=== PATIENT | female | born 1945 | race Caucasian/White ===

== ENCOUNTER 2017-01-18 09:09 | Emergency (ER) | payer OTHER ==
[~2017-01-18] VITALS: Ht 160 cm; Wt 69.0 kg
[~2017-01-18 09:09] MED LIST: ALPR.25 PO; AMLO2.5T PO; BENT20TA PO; FISHCAP4 PO; LACTCAP7 PO; METO25TA6 PO; VITA20003 PO; ZOCO40TA PO
[2017-01-18 09:18] VITALS: BP 175/79; PULSE 86; RESP 16; TEMP 98; O2SAT 100
[2017-01-18] MEDS ORDERED: ALPR.25 PO (09:30)
[2017-01-18] MEDS ORDERED: METO25TA3 PO (09:30)
[2017-01-18] MEDS ORDERED: VENTAER INH (09:38)
--- NOTE | 2017-01-18 09:42 | PD ---
HPI Chief Complaint: Cold / Flu Symptoms Time Seen by Provider: 09:32 Travel History International Travel<30 days: No Contact w/Intl Traveler<30days: No Traveled to known affect area: No History of Present Illness HPI The patient was seen and examined in the presence of the nurse. This patient complains of cough. Duration 2 weeks. She also has runny nose and congestion and sore throat. Denies fever. Cough is dry. She saw her physician for this and had a chest x-ray and lab studies and completed a Z-Brian. She doesn't feel any better. PFSH Past Medical History Anxiety: Yes Heart Rhythm Problems: No Cardiac Catheterization: No Cardiovascular Problems: Yes High Cholesterol: Yes Congestive Heart Failure: No Diabetes: No Diminished Hearing: No Gastrointestinal Disorders: Yes (CROHN'S DISEASE) GERD: Yes Hypertension: Yes Immunizations Current: Yes ?: Not Menopausal: Yes Ovarian Cysts: Yes Past Surgical History Abdominal Surgery: Yes (CROHN'S SURGERY) Appendectomy: Yes Cholecystectomy: Yes Coronary Artery Bypass Graft: No Gynecologic Surgery: Yes Other Surgery: Yes (ENDOSCOPY) Social History Alcohol Use: No Tobacco Use: No Substance Use: No Allergies-Medications (Allergen,Severity, Reaction): Coded Allergies: Penicillin (Verified Allergy, Severe, mouth swells, 01/18/17) Reported Meds & Prescriptions Reported Meds & Active Scripts Active Ventolin Hfa 18 GM Inh (Albuterol Sulfate) 90 Mcg/Act Aer 2 Puff INH Q4H PRN Reported Metoprolol Tartrate 25 Mg Tab 25 Mg PO BID Xanax (Alprazolam) 0.25 Mg Tab 0.25 Mg PO BID PRN Review of Systems HENT: No: Headaches Cardiovascular: No: Chest Pain or Discomfort Respiratory: Positive: Cough Physical Exam Narrative RESPIRATORY: Respiratory effort unlabored, no retractions or use of accessory muscles. Breath sounds are clear and symmetric. CARDIOVASCULAR: Regular rate and rhythm without murmur. Extremities showed no edema or varicosities. GASTROINTESTINAL: Abdomen soft, non-tender, nondistended. Positive bowel sounds. No hepato-splenomegaly, or palpable masses. No guarding. Throat clear Data Data Last Documented VS Vital Signs Date Time Temp Pulse Resp B/P Pulse Ox O2 Delivery O2 Flow Rate FiO2 01/18/17 09:18 98.0 86 16 175/79 100 MDM Medical Decision Making Medical Screen Exam Complete: Yes Emergency Medical Condition: Yes Medical Record Reviewed: Yes Differential Diagnosis Bronchitis, laryngitis, pneumonia Narrative Course I have reviewed the patient's electronic medical record. Patient has clear lungs with 100% oxygen saturations but persistent hacking cough despite Z-Brian She's had extensive workup She likely has viral bronchitis I prescribed albuterol inhaler to use as needed The patient was advised to follow up with their physician and return if they worsen. Diagnosis Primary Impression: Acute viral bronchitis Additional Instructions: The patient was advised to follow up with their physician and return if they worsen. Med/Other Pt SpecificInfo: Prescription(s) given Scripts Albuterol 18 GM Inh (Ventolin Hfa 18 GM Inh)90 Mcg/Act Aer2 Puff INH Q4H PRN ( SHORTNESS OF BREATH) #1 INHALER Ref 0 Prov:Lalo Bell MD 01/18/17 Disposition: 01 DISCHARGE HOME Condition: Stable Lalo Bell MD Jan 18, 2017 09:42
== END 2017-01-18 09:55 | disposition home or self-care (01) ==
LOC: PHEFT 09:09
DX: J20.8 Acute bronchitis due to other specified organisms (principal); B97.89 Other viral agents as the cause of diseases classified elsewhere; R09.81 Nasal congestion; R07.0 Pain in throat; I10 Essential (primary) hypertension; E78.00 Pure hypercholesterolemia, unspecified; Z86.59 Personal history of other mental and behavioral disorders; Z86.79 Personal history of other diseases of the circulatory system; Z87.19 Personal history of other diseases of the digestive system
CPT/HCPCS: 99283

== ENCOUNTER 2017-02-01 22:13 | Emergency (ER) | payer OTHER ==
[~2017-02-01 22:13] MED LIST changes: -AMLO2.5T PO; -BENT20TA PO; -FISHCAP4 PO; -LACTCAP7 PO; +METO25TA3 PO; -METO25TA6 PO; +VENTAER INH; -VITA20003 PO; -ZOCO40TA PO
[2017-02-01 22:17] VITALS: BP 105/79; PULSE 104; RESP 20; TEMP 97.8; O2SAT 100
[2017-02-01] MEDS ORDERED: METO50TA11 PO (22:25)
[2017-02-01 22:35] VITALS: PULSE 88; RESP 18; O2SAT 100
--- NOTE | 2017-02-01 22:40 | PD ---
HPI Chief Complaint: Respiratory Symptoms Time Seen by Provider: 22:29 Travel History International Travel<30 days: No Contact w/Intl Traveler<30days: No Traveled to known affect area: No History of Present Illness HPI 71-year-old female here for evaluation of cough. For the last month the patient has had a dry/hacking cough. She was seen in the emergency department on 01/18/17 after having had the cough for a couple of weeks and being treated as an outpatient by her primary care physician with a Z-Brian without any improvement. It was felt that she had viral bronchitis at that time. Patient tells me that last week her primary care physician ordered lab work as well as a chest x-ray on her, and she tells me that everything was normal. She denies chest pain. She states that she was doing well today, until this evening at around 8:00 PM when her cough returned. She is having some pain in her throat, and she believes that there is a wound in her throat. No dyspnea. No history of DVT or PE. No fevers. The patient also tells me that she feels anxious and has an old prescription for Xanax and was felt 2 years ago, but believes that these medications are no longer effective. She is requesting a refill of Xanax until she can make an appointment with her primary care physician early this week. 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.) Gastrointestinal Disorders: Yes (CROHN'S DISEASE) GERD: Yes Hypertension: Yes Immunizations Current: Yes Tetanus Vaccination: Unknown Influenza Vaccination: Yes Menopausal: Yes : 7 Para: 2 Miscarriage: 5 Ovarian Cysts: Yes Past Surgical History Abdominal Surgery: Yes (CROHN'S SURGERY) Appendectomy: Yes Cholecystectomy: Yes Coronary Artery Bypass Graft: No Gynecologic Surgery: Yes Other Surgery: Yes (ENDOSCOPY) Social History Alcohol Use: No Tobacco Use: No Substance Use: No Allergies-Medications (Allergen,Severity, Reaction): Coded Allergies: penicillin G (Unverified Allergy, Severe, mouth swells, 02/01/17) Reported Meds & Prescriptions Reported Meds & Active Scripts Active Ventolin Hfa 18 GM Inh (Albuterol Sulfate) 90 Mcg/Act Aer 2 Puff INH Q4H PRN Reported Metoprolol Succinate ER 24 HR (Metoprolol Succinate) 50 Mg Tab 50 Mg PO DAILY Xanax (Alprazolam) 0.25 Mg Tab 0.25 Mg PO BID PRN Review of Systems Except as stated in HPI: all other systems reviewed are Neg Physical Exam Narrative GENERAL: Well-developed, well-nourished, persistent dry/hacking cough SKIN: Focused skin assessment warm/dry. HEAD: Atraumatic. Normocephalic. EYES: Pupils equal and round. No scleral icterus. No injection or drainage. ENT: Mucous membranes pink and moist. Normal pharynx. NECK: Trachea midline. No JVD. No masses. CARDIOVASCULAR: Regular rate and rhythm. RESPIRATORY: No accessory muscle use. Clear to auscultation. Breath sounds equal bilaterally. Persistent dry/hacking cough. No respiratory distress. Speaking rapidly. MUSCULOSKELETAL: No obvious deformities. No clubbing. No cyanosis. No edema. NEUROLOGICAL: Awake and alert. No obvious cranial nerve deficits. Motor grossly within normal limits. Normal speech. PSYCHIATRIC: Appropriate mood and affect; insight and judgment normal. Data Data Last Documented VS Vital Signs Date Time Temp Pulse Resp B/P (MAP) Pulse Ox O2 Delivery O2 Flow Rate FiO2 02/01/17 22:35 88 18 100 Room Air 02/01/17 22:17 97.8 105/79 (88) Orders Orders Albuterol-Ipratropium Neb (Duoneb Neb) (02/01/17 22:45) Guaifen-Cod 200-20 Mg/10ml Liq (Robituss (02/01/17 22:45) Prednisone (Deltasone) (02/01/17 22:45) Alprazolam (Xanax) (02/01/17 22:45) Al-Mag Hy-Si 40-40-4 Mg/Ml Liq (Mag-Al P (02/01/17 23:30) Lidocaine 2% Viscous (Xylocaine 2% Visco (02/01/17 23:30) MDM Medical Decision Making Medical Screen Exam Complete: Yes Emergency Medical Condition: Yes Medical Record Reviewed: Yes Differential Diagnosis Bronchitis, reactive airway disease, pneumonia less likely Narrative Course Vital signs show heart rate 80, blood pressure 105/79, pulse ox 100% on room air , oral temp of 97.8F. Patient's lungs are clear and equal bilaterally. She tells me she had a chest x -ray last week and reports that it was normal. She also reports that she had lab work performed by her primary care physician last week that was also normal. Her cough is dry/hacking. It has been going on for a month. She is in no respiratory distress and is speaking very rapidly. She was given 3 DuoNeb treatments and oral prednisone as well as a dose of guaifenesin with codeine and a dose of viscous lidocaine. Patient feels improved, however she still complains of a dry cough. She is stable for discharge home with outpatient follow-up with her primary care physician whom she states she will call tomorrow. She is requesting a short course of Xanax in case she is unable to see him tomorrow. She was informed on when to return to the emergency department. She verbalizes understanding and agreement with plan. Diagnosis Primary Impression: Cough Referrals: Primary Care Physician 3 days Additional Instructions: Follow-up with your primary care physician tomorrow. Return to the emergency department for worsening symptoms or any other concerns. Scripts Alprazolam (Xanax) 0.5 Mg Tab 0.5 MG PO Q8H Y for ANXIETY, #3 TAB 0 Refills Prov: Jamie Perez MD 02/01/17 Guaifenesin-Codeine Liq (Guaifenesin AC Liq) 100-10 Mg/5 Ml Syrp 10 ML PO Q6H Y for COUGH, #1 BOTTLE 0 Refills Prov: Jamie Perez MD 02/01/17 Prednisone (Prednisone) 50 Mg Tab 50 MG PO DAILY for 5 Days, TAB 0 Refills Prov: Jamie Perez MD 02/01/17 Disposition: 01 DISCHARGE HOME Condition: Stable Jamie Perez MD Feb 01, 2017 22:39
[2017-02-01] MEDS ORDERED: guaiFENesin/CODEINE SYRUP 200 MG/20 MG/10 ML CUP PO ONE (22:45)
[2017-02-01] MEDS ORDERED: predniSONE 50 MG TAB PO ONE (22:45)
[2017-02-01] MEDS ORDERED: ALPRAZolam 0.5 MG TAB PO ONE (22:45)
[2017-02-01] MEDS: RESP: ALBUTEROL 2.5 MG/IPRATROPIUM 0.5 MG NEB (SCH) INH ×3 (22:48→23:07)
[2017-02-01] MEDS ORDERED: LIDOCAINE VISCOUS 2% SOLN 15 ML UDC PO ONE (23:30)
[2017-02-01] MEDS ORDERED: ALUMINUM/MAGNESIUM/SIMETH 30 ML CUP PO ONE (23:30)
[2017-02-01] MEDS ORDERED: PRED50 PO (23:42)
[2017-02-01] MEDS ORDERED: ALPR.5 PO (23:42)
[2017-02-01] MEDS ORDERED: GUAISYP4 PO (23:42)
[2017-02-01 23:50] VITALS: BP 123/73; PULSE 90; RESP 16; O2SAT 96
== END 2017-02-02 00:09 | disposition home or self-care (01) ==
LOC: PHED 22:13
DX: R05 Cough (principal); K50.90 Crohn's disease, unspecified, without complications; I10 Essential (primary) hypertension; K21.9 Gastro-esophageal reflux disease without esophagitis
CPT/HCPCS: 94640; 94664; 99284; J7512

== ENCOUNTER → 2017-02-05 | Outpatient (CLI) | payer OTHER ==
[~2017-02-05] MED LIST changes: +ALPR.5 PO; +GUAISYP4 PO; -METO25TA3 PO; +METO50TA11 PO; +PRED50 PO
--- NOTE | 2017-02-10 08:54 | RSPPFT ---
DATE OF PROCEDURE: 02/05/17 COMMENTS: Spirometry with FVC of 2.8 predicted 2.7, FEV1 of 2.1 predicted 2.1, FEV1/FVC ratio 77% predicted 82%. Lung volumes are basically within the predicted range. Airways resistance is increased. DLCO is within the predicted range. IMPRESSION: On the basis of the above, patient has flow values and lung volumes within the predicted range. There is some increase in airways resistance.
== END ==
LOC: HRSP 07:49
PROVIDERS: ATTEND Internal Medicine
DX: R06.02 Shortness of breath (principal); R05 Cough
CPT/HCPCS: 94060; 94726; 94729

== ENCOUNTER → 2017-04-02 | Outpatient (CLI) | payer OTHER ==
[~2017-04-02] MED LIST changes: +METO1TAB9 PO; -METO50TA11 PO
--- NOTE | 2017-04-03 09:00 | RSPPFT ---
DATE OF PROCEDURE: 04/02/17 COMMENTS: Spirometry shows FVC of 2.9 at 108% of predicted, FEV1 of 103%,, FEV1/FVC ratio is normal. Flow is normal at FEF 25, FEF 50, FEF 75 and FEF 25-75. There is no response after bronchodilator treatment. Lung volumes show residual volume is decreased. TLC is normal. Diffusion capacity is normal. Flow volume loop indicates a normal pattern. IMPRESSION: 1. Normal spirometry. 2. No response after bronchodilator treatment. 3. Normal lung volumes. 4. Normal diffusion. 5. No significant changes compared to previous study of 02/05/17.
== END ==
LOC: PHRSP 07:26
PROVIDERS: ATTEND Specialist
DX: R05 Cough (principal)
CPT/HCPCS: 94060; 94726; 94729

== ENCOUNTER 2017-08-11 12:20 | Observation (INO) | payer OTHER ==
[2017-08-11] MEDS ORDERED: IOHEXOL 350 MG/ML 10 ML VIAL (for RAD DIAG) IVCONTRAST ONE (12:21)
[2017-08-11 12:25] VITALS: BP 157/73; PULSE 78; RESP 18; TEMP 99.4; O2SAT 99
[2017-08-11 13:37] LABS: AUTOMATED NEUTROPHIL # 3.5 TH/MM3 (1.8-7.7); BASOPHIL % 0.2 % (0.0-2.0); EOSINOPHIL # 0.2 TH/MM3 (0-0.4); EOSINOPHIL % 2.6 % (0.0-4.0); HEMATOCRIT 40.1 % (35.0-46.0); HEMOGLOBIN 13.6 GM/DL (11.6-15.3); LYMPH % 31.3 % (9.0-44.0); LYMPHOCYTE # 1.8 TH/MM3 (1.0-4.8); MEAN CELL VOLUME 86.2 FL (80.0-100.0); MEAN CORPUSCULAR HEMOGLOBIN 29.2 PG (27.0-34.0); MEAN CORPUSCULAR HGB CONC 33.8 % (32.0-36.0); MEAN PLATELET VOLUME 9.2 FL (7.0-11.0); MONOCYTE # 0.3 TH/MM3 (0-0.9); NEUT % 59.9 % (16.0-70.0); PLATELET COUNT 229 TH/MM3 (150-450); RED BLOOD COUNT 4.66 MIL/MM3 (4.00-5.30); RED CELL DISTRIBUTION WIDTH 13.5 % (11.6-17.2); WHITE BLOOD COUNT 5.8 TH/MM3 (4.0-11.0)
--- NOTE | 2017-08-11 13:39 | RADRPT ---
EXAM DATE/TIME: 08/11/2017 13:26 [facility] COMPARISON: CHEST SINGLE AP, March 10, 2016, 1:42. INDICATIONS : Chest pain. Patient complains of burning and tightness in chest that radiates to back.. Patient also has a cough and shortness of breath. patiebt also states she has high blood pressure today. MEDICAL HISTORY : H/O Tuberculosis. SURGICAL HISTORY : None. ENCOUNTER: Initial ACUITY: 1 day PAIN SCORE: 4/10 LOCATION: Bilateral chest FINDINGS: PA and lateral views of the chest demonstrate the lungs to be symmetrically aerated without evidence of mass, infiltrate or effusion. The cardiomediastinal contours are unremarkable. Osseous structure s are intact. CONCLUSION: No acute intrathoracic disease. No change compared to the prior study. Ubaldo Salinas MD on August 11, 2017 at 13:37 Board Certified Radiologist. This report was verified electronically.
[2017-08-11 13:46] LABS: INTERNATIONAL NORMALIZED RATIO 0.9 RATIO; PROTHROMBIN TIME - PATIENT 9.6 SEC (9.8-11.6)
[2017-08-11 14:00] LABS: BLOOD UREA NITROGEN 10 MG/DL (7-18); CALCIUM 9.5 MG/DL (8.5-10.1); CHLORIDE 102 MEQ/L (98-107); CREATININE 0.77 MG/DL (0.50-1.00); GLOMERULAR FILTRATION RATE 74 ML/MIN (>89); GLUCOSE,RANDOM 82 MG/DL (74-106); MAGNESIUM 2.3 MG/DL (1.5-2.5); SODIUM (NA) 138 MEQ/L (136-145); TROPONIN I LESS THAN 0.02 NG/ML (0.02-0.05)
--- NOTE | 2017-08-11 14:06 | PD ---
HPI Chief Complaint: Chest Pain Time Seen by Provider: 14:03 Travel History International Travel<30 days: No Contact w/Intl Traveler<30days: No Traveled to known affect area: No History of Present Illness HPI 71 YO F with PMH of 6 month history of cough, anxiety presents to the ED for evaluation of ~18 hour history of 5/10 central chest pressure that radiates to the left shoulder. Onset at rest. Pain is intermittent. Patient can identify no alleviating or exacerbating factors. She endorses accompanying shortness of breath, palpitations, nausea. She denies diaphoresis or vomiting. She noted that her blood pressure was 150/9? on 2 separate readings today which she states is unusual for her. She states that she called her wood sawyer and primary care provider and was referred to the ED. She states that she is having her cough evaluated on an outpatient basis, PCP ordered a CT of the chest which she has scheduled for later this month. She is a nonsmoker. Unsure of familial history of VT. She endorses history of stress test in 2014. She treated at home with half a 0.25 Xanax which she states did not improve her symptoms at all. 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.) Gastrointestinal Disorders: Yes (CROHN'S DISEASE) GERD: Yes Hypertension: Yes Immunizations Current: Yes Menopausal: Yes : 7 Para: 2 Miscarriage: 5 Ovarian Cysts: Yes Past Surgical History Abdominal Surgery: Yes (CROHN'S SURGERY) Appendectomy: Yes Cholecystectomy: Yes Coronary Artery Bypass Graft: No Gynecologic Surgery: Yes Other Surgery: Yes (ENDOSCOPY) Social History Alcohol Use: No Tobacco Use: No Substance Use: No Allergies-Medications (Allergen,Severity, Reaction): Coded Allergies: penicillin G (Unverified Allergy, Severe, mouth swells, 02/01/17) Reported Meds & Prescriptions Reported Meds & Active Scripts Active Xanax (Alprazolam) 0.5 Mg Tab 0.5 Mg PO Q8H PRN Guaifenesin AC Liq (Guaifenesin-Codeine Liq) 100-10 Mg/5 Ml Syrp 10 Ml PO Q6H PRN Prednisone 50 Mg Tab 50 Mg PO DAILY 5 Days Ventolin Hfa 18 GM Inh (Albuterol Sulfate) 90 Mcg/Act Aer 2 Puff INH Q4H PRN Reported Metoprolol Succinate ER 24 HR (Metoprolol Succinate) 50 Mg Tab 50 Mg PO DAILY Xanax (Alprazolam) 0.25 Mg Tab 0.25 Mg PO BID PRN Review of Systems Except as stated in HPI: all other systems reviewed are Neg Physical Exam Narrative GENERAL: Well-nourished, well-developed white female in no acute distress. SKIN: Focused skin assessment warm/dry. HEAD: Normocephalic. EYES: No scleral icterus. No injection or drainage. NECK: Supple, trachea midline. No JVD or lymphadenopathy. CARDIOVASCULAR: Regular rate and rhythm without murmurs, gallops, or rubs. CHEST: Nontender throughout without deformity or crepitus. No retractions . RESPIRATORY: Breath sounds clear and equal bilaterally. No accessory muscle use. GASTROINTESTINAL: Abdomen soft, non-tender, nondistended. MUSCULOSKELETAL: No cyanosis, or edema. BACK: Nontender without obvious deformity. No CVA tenderness. Data Data Last Documented VS Vital Signs Date Time Temp Pulse Resp B/P (MAP) Pulse Ox O2 Delivery O2 Flow Rate FiO2 08/11/17 17:51 84 18 179/91 (120) 97 Room Air 08/11/17 12:25 99.4 Orders Orders Electrocardiogram (08/11/17 12:27) Basic Metabolic Panel (Bmp) (08/11/17 12:27) Ckmb (Isoenzyme) Profile (08/11/17 12:27) Complete Blood Count With Diff (08/11/17 12:27) Magnesium (Mg) (08/11/17 12:27) Prothrombin Time / Inr (Pt) (08/11/17 12:27) Act Partial Throm Time (Ptt) (08/11/17 12:27) Troponin I (08/11/17 12:27) Chest, Pa & Lat (08/11/17 12:27) Ct Pulmonary Angiogram (08/11/17 14:53) Troponin I (08/11/17 16:59) Electrocardiogram (08/11/17 ) Iohexol 350 Inj (Omnipaque 350 Inj) (08/11/17 12:21) Diet Regular Basic (08/11/17 Dinner) Admit Order (Ed Use Only) (08/11/17 18:03) Activity Bed Rest With Brp (08/11/17 18:03) Vital Signs (Adult) Q4H (08/11/17 18:03) Cardiac Rhythm .As Directed (08/11/17 18:) Notify Dr: Other .PRN (08/11/17 18:) Notify DrTammy Parameters (08/11/17 18:03) Resp Oxygen Nasal Cannula (08/11/17 ) Ckmb (Isoenzyme) Profile (08/11/17 18:03) Ckmb (Isoenzyme) Profile (08/11/17 21:03) Troponin I (08/11/17 18:03) Troponin I (08/11/17 21:03) Electrocardiogram (08/11/17 18:) Electrocardiogram (08/11/17 21:03) ^ Obtain (08/11/17 18:) Sodium Chloride 0.9% Flush (Ns Flush) (08/11/17 18:15) Sodium Chloride 0.9% Flush (Ns Flush) (08/11/17 21:00) Aerial Gunner / Telemetry TIARA.Q8H (08/11/17 18:03) Labs Laboratory Tests Test 08/11/17 13:01 08/11/17 17:50 White Blood Count 5.8 TH/MM3 Red Blood Count 4.66 MIL/MM3 Hemoglobin 13.6 GM/DL Hematocrit 40.1 % Mean Corpuscular Volume 86.2 FL Mean Corpuscular Hemoglobin 29.2 PG Mean Corpuscular Hemoglobin Concent 33.8 % Red Cell Distribution Width 13.5 % Platelet Count 229 TH/MM3 Mean Platelet Volume 9.2 FL Neutrophils (%) (Auto) 59.9 % Lymphocytes (%) (Auto) 31.3 % Monocytes (%) (Auto) 6.0 % Eosinophils (%) (Auto) 2.6 % Basophils (%) (Auto) 0.2 % Neutrophils # (Auto) 3.5 TH/MM3 Lymphocytes # (Auto) 1.8 TH/MM3 Monocytes # (Auto) 0.3 TH/MM3 Eosinophils # (Auto) 0.2 TH/MM3 Basophils # (Auto) 0.0 TH/MM3 CBC Comment DIFF FINAL Differential Comment Prothrombin Time 9.6 SEC Prothromb Time International Ratio 0.9 RATIO Activated Partial Thromboplast Time 23.4 SEC Blood Urea Nitrogen 10 MG/DL Creatinine 0.77 MG/DL Random Glucose 82 MG/DL Calcium Level 9.5 MG/DL Magnesium Level 2.3 MG/DL Sodium Level 138 MEQ/L Potassium Level 4.0 MEQ/L Chloride Level 102 MEQ/L Carbon Dioxide Level 33.0 MEQ/L Anion Gap 3 MEQ/L Estimat Glomerular Filtration Rate 74 ML/MIN Total Creatine Kinase 80 U/L Troponin I LESS THAN 0.02 NG/ML LESS THAN 0.02 NG/ML MDM Medical Decision Making Medical Screen Exam Complete: Yes Emergency Medical Condition: Yes Differential Diagnosis Chest pain versus ACS versus anxiety versus PE versus other Narrative Course 71 YO F with PMH of 6 month history of cough, anxiety presents to the ED for evaluation of ~18 hour history of 5/10 central chest pressure that radiates to the left shoulder. Onset at rest. Pain is intermittent. She endorses accompanying SOB, palpitations, nausea. She denies diaphoresis or vomiting. She noted that her blood pressure was 150/9? on 2 separate readings today which she states is unusual for her. She states that she is having her cough evaluated on an outpatient basis, PCP ordered a CT of the chest which she has scheduled for later this month. She is a nonsmoker. Unsure of familial history of VT. She endorses history of stress test in 2014. She treated at home with half a 0.25 Xanax with no improvement in symptoms. On arrival temp 99.4, pulse 78, BP 157/73. On exam this is a nontoxic-appearing white female in no acute distress. No appreciable M/R/G. Chest CTAB. No tenderness to palpation over the precordium Abdomen soft and nontender. Reviewed the patient' s record. Last stress test 05/13/15. EKG: Rate 75, sinus rhythm. W[place] interval 152, QRS 73, QTc 389 ms. Normal axis. No acute ST changes. Reviewed by Dr. [place]. CXR: No acute intrathoracic disease. No changes compared to prior study. Cardiac enzymes: Negative 1. CBC: Unremarkable. CMP: No concerning abnormalities. Coags: INR 0.9 CTA chest: No acute intrathoracic abnormality per radiology read. I discussed the results of workup with the patient. She is agreeable to admission to the chest pain center to rule out ACS. Please see their notes for disposition. Yvonne Senior Aug 11, 2017 14:06
--- NOTE | 2017-08-11 17:47 | RADRPT ---
EXAM DATE/TIME: 08/11/2017 17:34 [facility] COMPARISON: No previous studies available for comparison. INDICATIONS : Short of breath with chest pains. IV CONTRAST: 74 cc Omnipaque 350 (iohexol) IV RADIATION DOSE: 11.59 CTDIvol (mGy) MEDICAL HISTORY : Cardiovascular disease. Hypertension. SURGICAL HISTORY : Appendectomy. Cholecystectomy. ENCOUNTER: Initial ACUITY: 1 day PAIN SCALE: 7/10 LOCATION: Bilateral chest TECHNIQUE: Volumetric scanning of the chest was performed using a pulmonary embolism protocol MIP images were re constructed. Using automated exposure control and adjustment of the mA and/or kV according to patien t size, radiation dose was kept as low as reasonably achievable to obtain optimal diagnostic quality images. DICOM format image data is available electronically for review and comparison. Follow-up recommendations for detected pulmonary nodules are based at a minimum on nodule size and pa tient risk factors according to Fleischner Society Guidelines. FINDINGS: PULMONARY ARTERIES: No filling defects are seen in the pulmonary arteries through the segmental level. LUNGS: There is no consolidation or pneumothorax . No concerning pulmonary nodule is visualized. PLEURAE: There is no pleural thickening or pleural effusion. MEDIASTINUM: There is good visualization of the great vessels of the middle mediastinum. No evidence of mediastin al or hilar adenopathy/mass. MUSCULOSKELETAL: Within normal limits for patient age. MISCELLANEOUS: There is a 5.3 cm cyst involving the upper pole the left kidney. Gallbladder is surgically absent. CONCLUSION: 1. No acute intrathoracic abnormality. Jayjay Mendoza Jr., MD on August 11, 2017 at 17:42 Board Certified Radiologist. This report was verified electronically.
[2017-08-11 17:51] VITALS: BP 179/91; PULSE 84; RESP 18; O2SAT 97
[2017-08-11] MEDS ORDERED: SODIUM CHLORIDE 0.9% FLUSH 10 ML FLUSH IV FLUSH PRN (18:15)
[2017-08-11 19:31] VITALS: BP 179/86; PULSE 60; RESP 16; TEMP 97.8; O2SAT 99
[2017-08-11 20:00] VITALS: PULSE 81
[2017-08-11] MEDS: SODIUM CHLORIDE 0.9% FLUSH 10 ML FLUSH IV FLUSH SCH (20:51)
[2017-08-11 21:01] VITALS: BP 131/77
[2017-08-11 21:39] LABS: TROPONIN I LESS THAN 0.02 NG/ML (0.02-0.05)
[2017-08-11 23:18] LABS: TROPONIN I LESS THAN 0.02 NG/ML (0.02-0.05)
[2017-08-12] VITALS (7 sets, daily range): BP systolic 127–136; BP diastolic 63–65; PULSE 58–96; RESP 14–18; TEMP 96.6–98.4; O2SAT 96–98
--- NOTE | 2017-08-12 08:49 | HHI.HP ---
HPI Primary Care Physician Unknown Chief Complaint Chest pain History of Present Illness This is a 71-year-old female with history of hypertension and hyperlipidemia that presents with complaint of chest discomfort that was present throughout the day yesterday. Describes as a pressure. Center of her chest that radiates to her left shoulder. Found nothing to change her symptoms. Denies nausea or diaphoresis. Patient also states that she has had this type of symptom on a weekly basis for the last 3 or 4 months. Has not sought treatment for that. She also has had a cough for the past several months and has a following up with her physician in regards to this and was scheduled to have a outpatient CT. CTA was obtained in the ED. Her cough has been nonproductive. Denies fevers or chills. Denies history of CAD. Denies any knowledge of any lung disorders. Review of Systems General: Patient denies fevers, chills, and recent travel HEENT: Patient denies headache, sore throat, difficulty swallowing. Cardiovascular: Has the chest discomfort as mentioned above. Denies sensation of heart beating rapidly or irregularly. No syncope. Denies diaphoresis. Respiratory: She has had a nonproductive cough for months. Denies shortness of breath or inspirational chest discomfort. Denies wheezing or hemoptysis. GI: Patient denies nausea, vomiting, diarrhea, abdominal pain, bloody stools. Musculoskeletal: Patient denies joint pain or edema. Denies calf pain or edema. Neurovascular: Patient denies numbness, tingling, weakness in extremities. Denies headache. Endocrine: Denies polyuria and polydipsia. Hematologic: Denies easy bruising. Skin: Denies rash or itching. Past Family Social History Allergies: Coded Allergies: penicillin G (Unverified Allergy, Severe, mouth swells, 02/01/17) Past Medical History Hypertension and hyperlipidemia. Denies diabetes and known CAD. Past Surgical History Noncontributory. Reported Medications Reported Meds & Active Scripts Active Xanax (Alprazolam) 0.5 Mg Tab 0.5 Mg PO Q8H PRN Guaifenesin AC Liq (Guaifenesin-Codeine Liq) 100-10 Mg/5 Ml Syrp 10 Ml PO Q6H PRN Prednisone 50 Mg Tab 50 Mg PO DAILY 5 Days Ventolin Hfa 18 GM Inh (Albuterol Sulfate) 90 Mcg/Act Aer 2 Puff INH Q4H PRN Reported Metoprolol Succinate ER 24 HR (Metoprolol Succinate) 50 Mg Tab 50 Mg PO DAILY Xanax (Alprazolam) 0.25 Mg Tab 0.25 Mg PO BID PRN Active Ordered Medications Current Medications Medications (Trade) Dose Ordered Sig/Ally Route Start Time Stop Time Status Last Admin (NS Flush) 2 ml UNSCH PRN IV FLUSH 08/11/17 18:15 (NS Flush) 2 ml BID IV FLUSH 08/11/17 21:00 08/11/17 20:51 Family History Denies family history of CAD. Social History Non-smoker. Denies alcohol or illicit drugs. Physical Exam Vital Signs Vital Signs Date Time Temp Pulse Resp B/P (MAP) Pulse Ox O2 Delivery O2 Flow Rate FiO2 08/12/17 07:50 97.7 72 18 136/63 (87) 96 08/12/17 05:14 98 08/12/17 04:48 96.6 68 14 135/65 (88) 98 08/12/17 03:39 60 08/12/17 01:29 98.4 96 16 127/65 (85) 98 08/12/17 00:00 81 08/11/17 21:01 131/77 (95) 08/11/17 20:00 81 08/11/17 19:31 97.8 60 16 179/86 (117) 99 08/11/17 17:51 84 18 179/91 (120) 97 Room Air 08/11/17 12:25 99.4 78 18 157/73 (101) 99 Physical Exam GENERAL: This is a well-nourished, well-developed patient, in no apparent distress. Patient speaks in clear complete sentences. Patient is pleasant. HEENT: Head is atraumatic and normocephalic. Neck is supple without lymphadenopathy and trachea is midline. No JVD or carotid bruits. CARDIOVASCULAR: Regular rate and rhythm without murmurs, gallops, or rubs. RESPIRATORY: Clear to auscultation. Breath sounds equal bilaterally. No wheezes , rales, or rhonchi. Chest wall is nontender. No use of accessory muscles. GASTROINTESTINAL: Abdomen is nontender, nondistended. Abdomen soft. No obvious pulsatile mass or bruit. No CVA tenderness. Strong femoral pulses bilaterally. Normal bowel sounds in all quadrants. MUSCULOSKELETAL: Patient is moving upper and lower extremities freely. No calf tenderness or edema, no Homans sign. Strong pulses in upper and lower extremities. NEUROLOGICAL: Patient is alert and oriented. Cranial nerves 2-12 are grossly intact. No focal deficits and speech is clear. SKIN: No rash and turgor is normal. Laboratory Laboratory Tests Test 08/11/17 13:01 08/11/17 17:50 08/11/17 20:50 08/11/17 22:33 White Blood Count 5.8 Red Blood Count 4.66 Hemoglobin 13.6 Hematocrit 40.1 Mean Corpuscular Volume 86.2 Mean Corpuscular Hemoglobin 29.2 Mean Corpuscular Hemoglobin Concent 33.8 Red Cell Distribution Width 13.5 Platelet Count 229 Mean Platelet Volume 9.2 Neutrophils (%) (Auto) 59.9 Lymphocytes (%) (Auto) 31.3 Monocytes (%) (Auto) 6.0 Eosinophils (%) (Auto) 2.6 Basophils (%) (Auto) 0.2 Neutrophils # (Auto) 3.5 Lymphocytes # (Auto) 1.8 Monocytes # (Auto) 0.3 Eosinophils # (Auto) 0.2 Basophils # (Auto) 0.0 CBC Comment DIFF FINAL Differential Comment Prothrombin Time 9.6 Prothromb Time International Ratio 0.9 Activated Partial Thromboplast Time 23.4 Blood Urea Nitrogen 10 Creatinine 0.77 Random Glucose 82 Calcium Level 9.5 Magnesium Level 2.3 Sodium Level 138 Potassium Level 4.0 Chloride Level 102 Carbon Dioxide Level 33.0 Anion Gap 3 Estimat Glomerular Filtration Rate 74 Total Creatine Kinase 80 65 69 Troponin I LESS THAN 0.02 LESS THAN 0.02 LESS THAN 0.02 LESS THAN 0.02 Result Diagram: 08/11/17 1301 08/11/17 1301 Imaging Last [address] Angiography 08/11/17 1453 Signed Impressions: Service Date/Time: Friday, August 11, 2017 17:34 - CONCLUSION: 1. No acute intrathoracic abnormality. Jayjay Mendoza Jr., MD Chest X-Ray 08/11/17 1227 Signed Impressions: Service Date/Time: Friday, August 11, 2017 13:26 - CONCLUSION: No acute intrathoracic disease. No change compared to the prior study. Ubaldo Salinas MD Course EKGs are sinus rhythm without significant ST segment depressions or elevations. Caprini VTE Risk Assessment Caprini VTE Risk Assessment: Mod/High Risk (score >= 2) Caprini Risk Assessment Model Point Value = 1 Point Value = 2 Point Value = 3 Point Value = 5 Age 41-60 Minor surgery BMI > 25 kg/m2 Swollen legs Varicose veins or History of unexplained or recurrent spontaneous Oral contraceptives or hormone replacement Sepsis (< 1 month) Serious lung disease, including pneumonia (< 1 month) Abnormal pulmonary function Acute myocardial infarction Congestive heart failure (< 1 month) History of inflammatory bowel disease Medical patient at bed rest Age 61-74 Arthroscopic surgery Major open surgery (> 45 min) Laparoscopic surgery (> 45 min) Malignancy Confined to bed (> 72 hours) Immobilizing plaster cast Central venous access Age >= 75 History of VTE Family history of VTE Factor V Leiden Prothrombin [id number] Lupus anticoagulant Anticardiolipin antibodies Elevated serum homocysteine Heparin-induced thrombocytopenia Other congenital or acquired thrombophilia Stroke (< 1 month) Elective arthroplasty Hip, pelvis, or leg fracture Acute spinal cord injury (< 1 month) Prophylaxis Regimen Total Risk Factor Score Risk Level Prophylaxis Regimen 0-1 Low Early ambulation 2 Moderate Order ONE of the following: *Sequential Compression Device (SCD) *Heparin 5000 units SQ BID 3-4 Higher Order ONE of the following medications: *Heparin 5000 units SQ TID *Enoxaparin/Lovenox 40 mg SQ daily (WT < 150 kg, CrCl > 30 mL/min) *Enoxaparin/Lovenox 30 mg SQ daily (WT < 150 kg, CrCl > 10-29 mL/min) *Enoxaparin/Lovenox 30 mg SQ BID (WT < 150 kg, CrCl > 30 mL/min) AND/OR *Sequential Compression Device (SCD) 5 or more Highest Order ONE of the following medications: *Heparin 5000 units SQ TID (Preferred with Epidurals) *Enoxaparin/Lovenox 40 mg SQ daily (WT < 150 kg, CrCl > 30 mL/min) *Enoxaparin/Lovenox 30 mg SQ daily (WT < 150 kg, CrCl > 10-29 mL/min) *Enoxaparin/Lovenox 30 mg SQ BID (WT < 150 kg, CrCl > 30 mL/min) AND *Sequential Compression Device (SCD) Assessment and Plan Assessment and Plan * Atypical chest pain: Patient has had serial cardiac enzymes and EKGs for ruling out purposes. She was seen by Dr. Jake Montanez of cardiology in the chest pain center. We have discussed doing a Lexiscan with the patient, however we will discuss with her supply planner Dr. Ballard prior to this. Patient should follow-up with her supply planner after being discharged return to ED for interval issues. * Hypertension: Continue current medication. * Hyperlipidemia: Continue current medication. * Call follow-up with PCP. We will give copy of her CT. Patient is stable at this time. She is agreeable to this plan. Abiel Toussaint Aug 12, 2017 08:48
[2017-08-12] MEDS ORDERED: METOPROLOL SUCCINATE 50 MG EXTENDED RELEASE TAB PO SCH (09:00)
[2017-08-12] MEDS: SODIUM CHLORIDE 0.9% FLUSH 10 ML FLUSH IV FLUSH SCH (09:00)
[2017-08-12] MEDS ORDERED: REGADENOSON INJ 0.4 MG/5 ML SYR ONE (10:51)
--- NOTE | 2017-08-12 11:50 | RADRPT ---
EXAM DATE/TIME: 08/12/2017 10:33 [facility] COMPARISON: MYOCARDIAL PERF TREADMILL SPECT, GATED W/EF, May 13, 2015, 12:31. INDICATIONS : Mid chest pain for one day. Angina. DOSE: 26.7 mCi Tc99m Myoview at stress. 8.6 mCi Tc99m Myoview at rest. 0.4 mg Lexiscan STRESS SYMPTOMS: Short of breath. EJECTION FRACTION: 67% MEDICAL HISTORY : Hypertension. SURGICAL HISTORY : None. ENCOUNTER: Initial ACUITY: 1 day PAIN SCALE: 3/10 LOCATION: Midsternal chest TECHNIQUE: The patient underwent pharmacologic stress with infusion of prescribed dose. Continuous ECG tracing was monitored during stress. Gated SPECT imaging was performed after stress and conventional SPECT i maging was performed at rest. The examination was performed on a SPECT/CT scanner, both attenuation and non-corrected datasets were reviewed. FINDINGS: DISTRIBUTION: The maximum perfused segment at stress is in the anterolateral wall. PERFUSION STUDY: The pattern of perfusion at stress is within normal limits. GATED STUDY: There is intact wall motion and thickening without hypokinetic or dyskinetic segments. CONCLUSION: 1. No findings to indicate stress-induced myocardial ischemia identified. RISK CATEGORY: Low (<1% Annual Mortality Rate) David Campos MD on August 12, 2017 at 11:47 Board Certified Radiologist. This report was verified electronically.
--- NOTE | 2017-08-12 12:06 | HHI.DCPOC ---
Discharge Care Plan Diagnosis: (1) Chest pain, atypical Goals to Promote Your Health * To prevent worsening of your condition and complications * To maintain your health at the optimal level Directions to Meet Your Goals Take your medications as prescribed Follow your dietary instruction Follow activity as directed Keep your appointments as scheduled Take your immunizations and boosters as scheduled If your symptoms worsen call your PCP, if no PCP go to Urgent Care Center or Emergency Room Smoking is Dangerous to Your Health. Avoid second hand smoke Call the 24-hour hour crisis hotline for domestic abuse at Abiel Toussaint Aug 12, 2017 12:06
--- NOTE | 2017-08-12 13:50 | EKG ---
Date Performed: 08/11/2017 Time Performed: 19:13:35 PTAGE: 71 years EKG: Sinus rhythm NORMAL ECG PREVIOUS TRACING : 08/11/2017 12.54 DOCTOR: Benito Kelly Interpretating Date/Time 08/12/2017 13:48:52
--- NOTE | 2017-08-12 14:52 | EKG ---
Date Performed: 08/11/2017 Time Performed: 12:54:52 PTAGE: 71 years EKG: Sinus rhythm NORMAL ECG PREVIOUS TRACING : 03/10/2016 01.07 DOCTOR: Benito Kelly Interpretating Date/Time 08/12/2017 14:51:28
--- NOTE | 2017-08-14 08:53 | EKG ---
Date Performed: 08/11/2017 Time Performed: 21:53:17 PTAGE: 71 years EKG: Sinus rhythm NORMAL ECG PREVIOUS TRACING : 08/11/2017 19.13 Since previous tracing, no significant change noted DOCTOR: Jake Montanez Interpretating Date/Time 08/14/2017 08:51:38
--- NOTE | 2017-08-14 08:59 | TR ---
Date Performed: 08/12/2017 Time Performed: 10:56:54 DOCTOR: Jake Montanez DRUG LIST: CLINICAL HISTORY: REASON FOR TEST: REASON FOR ENDING: OBSERVATION: CONCLUSION: COMMENTS: Lexiscan stress test was performed under standard four minute protocol. Radionuclide was injected one minute prior to ending the test. No electrocardiographic abormalities were present t o suggest ischemia. Nuclear imaging and interpretation are pending.
== END 2017-08-12 13:16 | disposition home or self-care (01) ==
LOC: NEPE 12:20 → NEDA 18:06 → NEPHCDU 19:18
PROVIDERS: ADMIT Internal Medicine Interventional Cardiology; ATTEND Internal Medicine Interventional Cardiology
DX: R07.89 Other chest pain (principal); R06.02 Shortness of breath; R00.2 Palpitations; R11.0 Nausea; R05 Cough; I10 Essential (primary) hypertension; I20.9 Angina pectoris, unspecified; E78.00 Pure hypercholesterolemia, unspecified; K50.90 Crohn's disease, unspecified, without complications; K21.9 Gastro-esophageal reflux disease without esophagitis; N28.1 Cyst of kidney, acquired; F41.9 Anxiety disorder, unspecified; H91.92 Unspecified hearing loss, left ear
CPT/HCPCS: 71046; 71275; 78452; 80048; 82550; 83735; 84484; 85025; 85610; 85730; 93005; 93017; 99285; A9502; G0378; J2785; Q9967